=== PATIENT | female | born 1970 | race Caucasian/White ===

== ENCOUNTER 2019-06-16 19:30 | Emergency (ER) | payer OTHER, SELFPAY ==
[2019-06-16 19:47] VITALS: BP 168/95; PULSE 70; RESP 16; TEMP 37.1; O2SAT 99
--- NOTE | 2019-06-16 19:50 | DI.RAD.S_ITS ---
PROCEDURE: XR SHOULDER LT MIN 2V INDICATIONS: fall, lt anterior shoulder pain TECHNIQUE: 2 views of the shoulder were acquired. COMPARISON: None. FINDINGS: Bones: No dislocations. No suspicious bony lesions. Visualized ribs appear intact. There is a greater tuberosity fracture extends into the middle third of the humeral head Soft tissues: No suspicious soft tissue calcifications. IMPRESSION: No humeral head fracture laterally as discussed, no dislocation associated. Dictated by: Rodney Ambrose M.D. on 06/16/2019 at 20:40 Approved by: Rodney Ambrose M.D. on 06/16/2019 at 20:40
--- NOTE | 2019-06-16 22:34 | ED.UPPEXIN ---
HPI - Extremity Injury (Upper) <CARRIE Bloom - Last Filed: 06/16/19 22:49> General Chief Complaint: Extremity Injury, Upper Stated Complaint: fall, left shoulder injury Time Seen by Provider: 06/16/19 19:37 Source: patient Mode of arrival: ambulatory Limitations: no limitations History of Present Illness HPI narrative: This is a pleasant 48-year-old female, nonsmoker, presents with her spouse with chief complain of left anterior shoulder pain after a fall. She reports that had tripped on the driveway, landed on her anterior shoulder while her arm is extended back. She denies injuring any other areas from this fall. She denies tingling/numbness/weakness to left hand. Right hand is her dominant hand. She reports is able to move her fingers without difficulty. She reports had overuse injury to left shoulder in the past and had gotten physical therapy which helped with pain and mobility. Review of Systems <CARRIE Bloom - Last Filed: 06/16/19 22:49> Review of Systems General: Denies fever, chills, fatigue, malaise, sweats. HEENT: Denies sinus pain, ear pain, sore throat, difficulty swallowing, dizziness. Respiratory: Denies dyspnea, cough, wheezing, hemoptysis, sputum. Cardiovascular: Denies chest pain, palpitations, orthopnea, edema. Gastrointestinal: Denies nausea, vomiting, abdominal pain, diarrhea, constipation, melena. : Denies dysuria, frequency, incontinence, hematuria, urinary retention. Musculoskeletal: See HPI Skin: Denies rash, skin lesions, or other. Neurologic: Denies weakness, headache, numbness, change in speech, confusion, seizures, incoordination. Psychiatric: No concerning psychosocial issues. 12-point review of systems is negative except for those stated above. PFSH <CARRIE Bloom - Last Filed: 06/16/19 22:49> Medical History (Updated 06/16/19 @ 22:38 by CARRIE Bloom) Hypothyroid (Acute) Shoulder pain (Resolved) Social History (Updated 06/16/19 @ 22:38 by CARRIE Bloom) Smoking Status: Never smoker Exam <CARRIE Bloom - Last Filed: 06/16/19 22:49> Narrative Exam Narrative: General appearance: well developed, well nourished, in no acute distress. Head: normocephalic, atraumatic, no scalp lesions, non-tender. Eye: pupil equal, round. EOMI. Nose: nares patent. Oral: mucosa moist. Neck/Thyroid: neck supple, full range of motion, no visible masses. Skin: no suspicious rashes, lesions over visible areas. Warm and dry. Heart: no clubbing, no cyanosis, no edema. Lungs: Breathing even and unlabored. No stridor. No accessory muscles used. Chest: normal shape and expansion. Abdomen: non-obese, non-distended. Neurologic: alert and oriented. Cognitive exam, RN TEAM LEADER and PNS grossly intact on informal exam. Psych: good eye contact, normal affect. Initial Vital Signs Initial Vital Signs: Vital Signs Temperature 98.8 F 06/16/19 19:47 Pulse Rate 70 06/16/19 19:47 Respiratory Rate 16 06/16/19 19:47 Blood Pressure 168/95 H 06/16/19 19:47 Pulse Oximetry 99 06/16/19 19:47 Extrem Right upper extremity: normal to inspection and full ROM Left upper extremity: normal to inspection, normal capillary refill, shoulder/upper arm Details: inspection abnormal, tenderness, axillary nerve sensory function normal and abnormal ROM Details: pain with active ROM Details: in ADduction, in ABduction, in flexion and in internal rotation and with range as follows (some posterior extention only); no swelling, no abrasions, no lacerations, no crepitus, no deformity and no unsual warmth and hand Details: normal to inspection, normal capillary refill, neuromotor exam normal and normal ROM of fingers; no edema and joint enlargement noted Right lower extremity: normal to inspection and full ROM Left lower extremity: normal to inspection and full ROM <Blake Price MD - Last Filed: 06/17/19 02:17> Initial Vital Signs Initial Vital Signs: Vital Signs Temperature 98.8 F 06/16/19 19:47 Pulse Rate 70 06/16/19 19:47 Respiratory Rate 16 06/16/19 19:47 Blood Pressure 168/95 H 06/16/19 19:47 Pulse Oximetry 99 06/16/19 19:47 Course <CARRIE Bloom - Last Filed: 06/16/19 22:49> Orders Ordered: ED Orders 06/16/19 19:50 XR shoulder LT min 2V Stat Vital Signs - 8 hr 06/16/19 19:47 Temperature 98.8 F Pulse Rate 70 Respiratory Rate 16 Blood Pressure 168/95 H Pulse Oximetry 99 <Blake Price MD - Last Filed: 06/17/19 02:17> Orders Ordered: ED Orders 06/16/19 19:50 XR shoulder LT min 2V Stat Vital Signs - 8 hr 06/16/19 19:47 Temperature 98.8 F Pulse Rate 70 Respiratory Rate 16 Blood Pressure 168/95 H Pulse Oximetry 99 MDM - Extremity Injury (Upper) <CARRIE Bloom - Last Filed: 06/16/19 22:49> Differential Diagnosis Differential diagnosis: Likely dislocation of shoulder, fracture of humerus, fracture of clavicle and other (Shoulder strain) Medical Records Attestation: I reviewed the patient's medical records. Imaging Data XR-Shoulder L: Radiologist's impression: [place] [address] XRay Report Signed Patient: Taylor Potter EMR#: [id number] : 1970Acct:[id number] Age/Sex: 48 / FDate of Service: 06/16/19 Loc: ED Accession Number: [id number] Procedure: XR shoulder LT min 2V Ordering Provider: Blake Price MD PROCEDURE: XR SHOULDER LT MIN 2V INDICATIONS: fall, lt anterior shoulder pain TECHNIQUE: 2 views of the shoulder were acquired. COMPARISON: None. FINDINGS: Bones: No dislocations. No suspicious bony lesions. Visualized ribs appear intact. There is a greater tuberosity fracture extends into the middle third of the humeral head Soft tissues: No suspicious soft tissue calcifications. IMPRESSION: No humeral head fracture laterally as discussed, no dislocation associated. Dictated by: Rodney Ambrose M.D. on 06/16/2019 at 20:40 Approved by: Rodney Ambrose M.D. on 06/16/2019 at 20:40 [facility] Narrative Medical decision making narrative: This is a pleasant 48-year-old female with chief complain of left anterior shoulder pain. She had sustained a fall after tripped in her driveway this afternoon. She had taken 400 mg of ibuprofen and she was using her own sling/shoulder immobilizer before she came in to ED which helped her with discomfort. Patient was provided with ice pack for discomfort and inflammation. Shoulder x-ray was taken on left shoulder any indicates a greater tuberosity fracture extends into the middle and 3rd of the humeral head. Patient was placed in her own sling before DC to home and advised to use sling for splinting for humerus fracture. Patient reports her pain is manageable with ibuprofen at this time. Patient was advised to take [id number] Tylenol and or Motrin as needed for discomfort and use ice pack for next couple of days. Patient advised to follow up with [facility] next week and her primary care physician. Return precautions were discussed with patient and no further questions were expressed this time. Unfortunately, humerus x-ray itself was not taken prior patient DC to home. Discharge Plan Departure Patient Disposition: Home Clinical Impression: Closed fracture of head of humerus Qualifiers: Encounter type: initial encounter Laterality: left Qualified Code(s): S42.292A - Other displaced fracture of upper end of left humerus, initial encounter for closed fracture Discharge Date/Time: 06/16/19 21:33 Interventions: ED Discharge Assessment Last Done: 06/16/19 21:33 Instructions: Humeral Shaft Fracture Activity Restrictions/Additional Instructions: You have been diagnosed with [closed humeral head fracture according to today's x-ray test. Please ice on affected area for swelling and pain. Use shoulder immobilizer for splinting, try to limit using left arm. ]. What to do: *Take your medications as directed. He can continue to use [id number] Tylenol and/or Motrin as needed for pain. *Follow up with your primary care provider in 2-3 days and schedule [facility], call for an appointment. Let them know you were seen in the ED and that we asked you to be seen in follow up. *Return to ED if you have any new, worsening, or concerning symptoms, such as [worsening pain, tingling numbness/weakness to affected limb, chest pain, breathing difficulty, any acute concerns]. Referrals: [facility] [Outside] <Blake Price MD - Last Filed: 06/17/19 02:17> Cosign ED Attending Cosignature Attestation: The patient's medical evaluation and x-rays reviewed with CARRIE Ritchie, I agree with evaluation and treatment plan.
--- NOTE | 2019-06-16 22:49 | ED_ITS ---
HPI - Extremity Injury (Upper) <CARRIE Bloom - Last Filed: 06/16/19 22:49> General Chief Complaint: Extremity Injury, Upper Stated Complaint: fall, left shoulder injury Time Seen by Provider: 06/16/19 19:37 Source: patient Mode of arrival: ambulatory Limitations: no limitations History of Present Illness HPI narrative: This is a pleasant 48-year-old female, nonsmoker, presents with her spouse with chief complain of left anterior shoulder pain after a fall. She reports that had tripped on the driveway, landed on her anterior shoulder while her arm is extended back. She denies injuring any other areas from this fall. She denies tingling/numbness/weakness to left hand. Right hand is her dominant hand. She reports is able to move her fingers without difficulty. She reports had overuse injury to left shoulder in the past and had gotten physical therapy which helped with pain and mobility. Review of Systems <CARRIE Bloom - Last Filed: 06/16/19 22:49> Review of Systems General: Denies fever, chills, fatigue, malaise, sweats. HEENT: Denies sinus pain, ear pain, sore throat, difficulty swallowing, dizziness. Respiratory: Denies dyspnea, cough, wheezing, hemoptysis, sputum. Cardiovascular: Denies chest pain, palpitations, orthopnea, edema. Gastrointestinal: Denies nausea, vomiting, abdominal pain, diarrhea, constipation, melena. : Denies dysuria, frequency, incontinence, hematuria, urinary retention. Musculoskeletal: See HPI Skin: Denies rash, skin lesions, or other. Neurologic: Denies weakness, headache, numbness, change in speech, confusion, seizures, incoordination. Psychiatric: No concerning psychosocial issues. 12-point review of systems is negative except for those stated above. PFSH <CARRIE Bloom - Last Filed: 06/16/19 22:49> Medical History (Updated 06/16/19 @ 22:38 by CARRIE Bloom) Hypothyroid (Acute) Shoulder pain (Resolved) Social History (Updated 06/16/19 @ 22:38 by CARRIE Bloom) Smoking Status: Never smoker Exam <CARRIE Bloom - Last Filed: 06/16/19 22:49> Narrative Exam Narrative: General appearance: well developed, well nourished, in no acute distress. Head: normocephalic, atraumatic, no scalp lesions, non-tender. Eye: pupil equal, round. EOMI. Nose: nares patent. Oral: mucosa moist. Neck/Thyroid: neck supple, full range of motion, no visible masses. Skin: no suspicious rashes, lesions over visible areas. Warm and dry. Heart: no clubbing, no cyanosis, no edema. Lungs: Breathing even and unlabored. No stridor. No accessory muscles used. Chest: normal shape and expansion. Abdomen: non-obese, non-distended. Neurologic: alert and oriented. Cognitive exam, CONVEYOR BELT OPERATOR and PNS grossly intact on informal exam. Psych: good eye contact, normal affect. Initial Vital Signs Initial Vital Signs: Vital Signs Temperature 98.8 F 06/16/19 19:47 Pulse Rate 70 06/16/19 19:47 Respiratory Rate 16 06/16/19 19:47 Blood Pressure 168/95 H 06/16/19 19:47 Pulse Oximetry 99 06/16/19 19:47 Extrem Right upper extremity: normal to inspection and full ROM Left upper extremity: normal to inspection, normal capillary refill, shoulder/upper arm Details: inspection abnormal, tenderness, axillary nerve sensory function normal and abnormal ROM Details: pain with active ROM Details: in ADduction, in ABduction, in flexion and in internal rotation and with range as follows (some posterior extention only); no swelling, no abrasions, no lacerations, no crepitus, no deformity and no unsual warmth and hand Details: normal to inspection, normal capillary refill, neuromotor exam normal and normal ROM of fingers; no edema and joint enlargement noted Right lower extremity: normal to inspection and full ROM Left lower extremity: normal to inspection and full ROM <Blake Price MD - Last Filed: 06/17/19 02:17> Initial Vital Signs Initial Vital Signs: Vital Signs Temperature 98.8 F 06/16/19 19:47 Pulse Rate 70 06/16/19 19:47 Respiratory Rate 16 06/16/19 19:47 Blood Pressure 168/95 H 06/16/19 19:47 Pulse Oximetry 99 06/16/19 19:47 Course <CARRIE Bloom - Last Filed: 06/16/19 22:49> Orders Ordered: ED Orders 06/16/19 19:50 XR shoulder LT min 2V Stat Vital Signs - 8 hr 06/16/19 19:47 Temperature 98.8 F Pulse Rate 70 Respiratory Rate 16 Blood Pressure 168/95 H Pulse Oximetry 99 <Blake Price MD - Last Filed: 06/17/19 02:17> Orders Ordered: ED Orders 06/16/19 19:50 XR shoulder LT min 2V Stat Vital Signs - 8 hr 06/16/19 19:47 Temperature 98.8 F Pulse Rate 70 Respiratory Rate 16 Blood Pressure 168/95 H Pulse Oximetry 99 MDM - Extremity Injury (Upper) <CARRIE Bloom - Last Filed: 06/16/19 22:49> Differential Diagnosis Differential diagnosis: Likely dislocation of shoulder, fracture of humerus, fracture of clavicle and other (Shoulder strain) Medical Records Attestation: I reviewed the patient's medical records. Imaging Data XR-Shoulder L: Radiologist's impression: [place] [address] XRay Report Signed Patient: Taylor Potter EMR#: [id number] : 1970Acct:[id number] Age/Sex: 48 / FDate of Service: 06/16/19 Loc: ED Accession Number: [id number] Procedure: XR shoulder LT min 2V Ordering Provider: Blake Price MD PROCEDURE: XR SHOULDER LT MIN 2V INDICATIONS: fall, lt anterior shoulder pain TECHNIQUE: 2 views of the shoulder were acquired. COMPARISON: None. FINDINGS: Bones: No dislocations. No suspicious bony lesions. Visualized ribs appear intact. There is a greater tuberosity fracture extends into the middle third of the humeral head Soft tissues: No suspicious soft tissue calcifications. IMPRESSION: No humeral head fracture laterally as discussed, no dislocation associated. Dictated by: Rodney Ambrose M.D. on 06/16/2019 at 20:40 Approved by: Rodney Ambrose M.D. on 06/16/2019 at 20:40 [facility] Narrative Medical decision making narrative: This is a pleasant 48-year-old female with chief complain of left anterior shoulder pain. She had sustained a fall after tripped in her driveway this afternoon. She had taken 400 mg of ibuprofen and she was using her own sling/shoulder immobilizer before she came in to ED which helped her with discomfort. Patient was provided with ice pack for discomfort and inflammation. Shoulder x-ray was taken on left shoulder any indicates a greater tuberosity fracture extends into the middle and 3rd of the humeral head. Patient was placed in her own sling before DC to home and advised to use sling for splinting for humerus fracture. Patient reports her pain is manageable with ibuprofen at this time. Patient was advised to take [id number] Tylenol and or Motrin as needed for discomfort and use ice pack for next couple of days. Patient advised to follow up with [facility] next week and her primary care physician. Return precautions were discussed with patient and no further questions were expressed this time. Unfortunately, humerus x-ray itself was not taken prior patient DC to home. Discharge Plan Departure Patient Disposition: Home Clinical Impression: Closed fracture of head of humerus Qualifiers: Encounter type: initial encounter Laterality: left Qualified Code(s): S42.292A - Other displaced fracture of upper end of left humerus, initial encounter for closed fracture Discharge Date/Time: 06/16/19 21:33 Interventions: ED Discharge Assessment Last Done: 06/16/19 21:33 Instructions: Humeral Shaft Fracture Activity Restrictions/Additional Instructions: You have been diagnosed with [closed humeral head fracture according to today's x-ray test. Please ice on affected area for swelling and pain. Use shoulder immobilizer for splinting, try to limit using left arm. ]. What to do: *Take your medications as directed. He can continue to use [id number] Tylenol and/or Motrin as needed for pain. *Follow up with your primary care provider in 2-3 days and schedule [facility], call for an appointment. Let them know you were seen in the ED and that we asked you to be seen in follow up. *Return to ED if you have any new, worsening, or concerning symptoms, such as [worsening pain, tingling numbness/weakness to affected limb, chest pain, breathing difficulty, any acute concerns]. Referrals: [facility] [Outside] <Blake Price MD - Last Filed: 06/17/19 02:17> Cosign ED Attending Cosignature Attestation: The patient's medical evaluation and x- rays reviewed with CARRIE Ritchie, I agree with evaluation and treatment plan.
== END 2019-06-16 21:33 | disposition home or self-care (01) ==
PROVIDERS: Emergency Provider Nurse Practitioner Family
DX: S42.292A Other displaced fracture of upper end of left humerus, initial encounter for closed fracture (principal); W01.0XXA Fall on same level from slipping, tripping and stumbling without subsequent striking against object, initial encounter
CPT/HCPCS: 73030; 99282; 99283